=== PATIENT | female | born 1980 | race Caucasian/White ===

== ENCOUNTER 2018-05-09 13:45 | Outpatient (CLI) | payer BC ==
--- NOTE | 2018-05-09 15:20 | MRI ---
MRI LEFT SHOULDER WITHOUT CONTRAST: HISTORY: S46.012A (strain of left rotator cuff capsule, initial encounter). COMPARISON: Right radiograph from 03/16/2018. FINDINGS: Biceps tendon: Moderate extraarticular biceps tenosynovitis. Moderate intraarticular tendinosis. Mild abnormal T2 signal within the superior labrum, without a displaced tear. Rotator cuff: There is a high grade bursal surface tear of the posterior supraspinatus tendon fibers , measuring approximately 6 mm in AP dimension. It occurs at the footplate and involves approximatel y 50% of the thickness of the footplate. Moderate adjacent tendinosis. Bones: There is anterior and lateral downsloping of the acromion with narrowing of the subacromial s pace. The coracoacromial ligament is markedly thickened. There is narrowing of the subacromial spac e approximately 3 mm. This causes extensive bursal surface fraying of the supraspinatus tendon, as w ell as interstitial delamination. There is mild elevation of the distal clavicle, relative to the ac romion. May be sequela of prior injury. Muscles: The muscles signal and bulk are normal. IMPRESSION: 1. Anterior and lateral downsloping of the acromion narrowing the subacromial space under 4 mm. The re is associated bursal surface fraying, as well as high grade bursal surface tear of the posterior 6 mm fibers of the supraspinatus tendon, greater than 50% thickness, at from the footplate. There is also associated extensive interstitial delamination as well as moderate subacromial as well as subdel toid bursal effusion. 2. Mild intra-articular tendinosis as well as low grade extraarticular tenosynovitis of the biceps t endon. POS: [facility]
== END 2018-05-09 13:46 | disposition home or self-care (01) ==
LOC: SCSMRI 13:45
PROVIDERS: ATTEND Orthopaedic Surgery
DX: S46.012A Strain of muscle(s) and tendon(s) of the rotator cuff of left shoulder, initial encounter (principal); M65.812 Other synovitis and tenosynovitis, left shoulder; M75.102 Unspecified rotator cuff tear or rupture of left shoulder, not specified as traumatic; M25.812 Other specified joint disorders, left shoulder